=== PATIENT | male | born 1955 | race Caucasian/White ===

== ENCOUNTER 2017-11-23 05:33 | Inpatient (IN) | payer BC ==
[2017-11-02 10:59] VITALS: BMI 26.0
--- NOTE | 2017-11-02 11:32 | PAT Medication Instructions ---
Service Date Nov 02, 2017. Current Home Medication List Amlodipine/Benazepril (Lotrel 10MG/20MG), 1 CAP PO QAM Diclofenac (Voltaren), 75 MG PO BID Gabapentin (Neurontin), 400 MG PO QPM Hydrocodone/Acetaminophen 5MG/325MG ([place] 5MG/325MG), 0.5-1 TABLET PO Q6H Multivitamin (Multivitamin), 1 TAB PO QAM Pantoprazole (Protonix), 40 MG PO QAM Medication Instructions For Your Scheduled Surgery - Check with surgeon for instructions: Diclofenac (Voltaren), 75 MG PO BID - Hold the following medications the morning of surgery: Multivitamin (Multivitamin), 1 TAB PO QAM Amlodipine/Benazepril (Lotrel 10MG/20MG), 1 CAP PO QAM - Take the following medications the morning of surgery with a sip of water: Hydrocodone/Acetaminophen 5MG/325MG ([place] 5MG/325MG), 0.5-1 TABLET PO Q6H ( okay to take up to 4 hours prior to surgery if needed) Pantoprazole (Protonix), 40 MG PO QAM - Take the following medications as scheduled the night before surgery: Gabapentin (Neurontin), 400 MG PO QPM Hydrocodone/Acetaminophen 5MG/325MG ([place] 5MG/325MG), 0.5-1 TABLET PO Q6H (if needed) If you have any questions please call us at [phone] or [phone] or [phone]
[2017-11-02 12:30] LABS: BASO % 0.7 %; BASO ABS # 0.04 K/uL (0-0.2); EOS ABS # 0.18 K/uL (0-0.5); HEMATOCRIT 44.9 % (42-52); HEMOGLOBIN 15.5 g/dL (14.0-18.0); IG# 0.01 K/uL (0.00-0.02); LYMPH % 29.2 %; LYMPH ABS # 1.77 K/uL (1.2-3.4); MEAN CELL VOLUME 93.5 fL (80-100); MEAN CORPUSCULAR HEMOGLOBIN 32.3 pg (25-34); MEAN CORPUSCULAR HGB CONC 34.5 g/dl (32-36); MEAN PLATELET VOLUME 9.5 fL (7.4-10.4); MONO % 7.4 %; MONO ABS # 0.45 K/uL (0.11-0.59); NEUT % 59.5 %; NEUT ABS # 3.62 K/uL (1.4-6.5); PLATELET COUNT 282 K/uL (130-400); RED CELL DISTRIBUTION WIDTH CV 13.4 % (11.5-14.5); RED CELL DISTRIBUTION WIDTH SD 45.9 fL (36.4-46.3); WHITE BLOOD COUNT 6.07 K/uL (4.8-10.8)
--- NOTE | 2017-11-02 12:31 | DIAGNOSTIC IMAGING REPORT ---
CHEST 2 VIEWS ROUTINE CLINICAL HISTORY: PAT preoperative evaluation COMPARISON STUDY: 04/26/2015 FINDINGS: The bones soft tissues and hemidiaphragms are normal. The cardiomediastinal silhouette is normal. The lungs are clear. The pulmonary vasculature is normal. IMPRESSION: Negative chest. The above report was generated using voice recognition software. It may contain grammatical, syntax or spelling errors. Electronically signed by: Maurice Coyle M.D. 11/02/2017 12:30 PM Dictated Date/Time: 11/02/2017 12:30 PM
[2017-11-02 14:00] LABS: CREATININE 0.67 mg/dl (0.60-1.40); POTASSIUM 3.9 mmol/L (3.5-5.1)
[2017-11-23] VITALS (9 sets, daily range): BP systolic 109–145; BP diastolic 65–92; PULSE 64–95; TEMP 36.6–37; O2SAT 95–99; Ht 167.6 cm; Wt 73.8 kg
[~2017-11-23] VITALS: Ht 167.6 cm; Wt 73.8 kg
[~2017-11-23 05:33] MED LIST: AMLO10CA PO; DICL-201 PO; GABA-1220 PO; HYDR-5688 PO; MULT-506 PO; PANT40TA PO
[2017-11-23] MEDS ORDERED: CEFAZOLIN 1000MG IV PUSH 7.5 ML IV SCH (06:00)
[2017-11-23] MEDS ORDERED: ACETAMINOPHEN 500 MG TAB PO SCH (06:00)
[2017-11-23] MEDS ORDERED: LACTATED RINGER'S 1000ML 1,000 ML IV SCH (06:00)
[2017-11-23] MEDS ORDERED: GABAPENTIN 600 MG PO SCH (06:00)
[2017-11-23] MEDS ORDERED: CeleBREX 200 MG CAP PO SCH (06:00)
[2017-11-23] MEDS ORDERED: MIDAZOLAM HCL 1 MG/ML 2ML VIAL ONE (06:48)
[2017-11-23] MEDS ORDERED: FENTANYL CITRATE INJ 50 MCG/1 ML 2 ML VIAL ONE ×4 (06:48→08:51)
[2017-11-23] MEDS ORDERED: BUPIVACAINE/EPINEPHRINE 0.5% MPF 1:200,000 30 ML VIAL ONE (07:01)
[2017-11-23] MEDS ORDERED: BACITRACIN 50000 UNIT VIAL ONE (07:02)
--- NOTE | 2017-11-23 07:29 | History & Physical Bridge Note ---
H&P Re-Evaluation Bridge Note: I have examined the patient, reviewed the History & Physical and in the interval since the performance of the History & Physical I have noted the following changes of clinical significance: No changes noted
--- NOTE | 2017-11-23 07:29 | History and Physical ---
History & Physical Date Nov 23, 2017. Chief Complaint Back and leg pain History of Present Illness The patient is a 62 year old male with complaints of back and leg pain Additional History Hepatic Disease: No Endocrine Disorder: No Kidney Disease: No Hypertension: No Heart Disease: No Bleeding Tendencies: No Infectious Diseases: No Allergies Coded Allergies: No Known Allergies (Unverified , 11/02/17) Home Medications Scheduled Amlodipine/Benazepril (Lotrel 10MG/20MG), 1 CAP PO QAM Diclofenac (Voltaren), 75 MG PO BID Gabapentin (Neurontin), 400 MG PO QPM Hydrocodone/Acetaminophen 5MG/325MG ([place] 5MG/325MG), 0.5-1 TABLET PO Q6H Multivitamin (Multivitamin), 1 TAB PO QAM Pantoprazole (Protonix), 40 MG PO QAM Physical Examination Skin: warm/dry, no rash Eyes: normal inspection, EOMI, sclerae normal ENT: normal ENT inspection, pharynx normal Head: normocephalic, atraumatic Neck: supple, no adenopathy, trachea midline Respiratory/Chest: lungs clear, normal breath sounds, no respiratory distress Cardiovascular: regular rate, rhythm, no edema, no murmur Abdomen / GI: normal bowel sounds, non tender Back: normal inspection Extremities: normal inspection, normal range of motion Neurologic/Psych: no motor/sensory deficits, alert, normal reflexes, oriented x 3 Diagnosis Lumbar spinal stenosis Plan of Treatment Revision decompression and fusion L4-S1
[2017-11-23] MEDS ORDERED: HYDROmorphone INJ 2 MG/ML SYR/VIAL ONE ×2 (08:05→10:10)
[2017-11-23] MEDS ORDERED: EpHEDrine SULFATE 50MG/5ML SYR ONE ×2 (08:45→10:11)
[2017-11-23] MEDS ORDERED: ONDANSETRON INJ 2 MG/ML 2 ML VIAL ONE ×2 (08:45→10:11)
[2017-11-23] MEDS ORDERED: DEXAMETHASONE SOD INJ 4 MG/ML VIAL ONE (08:45)
[2017-11-23] MEDS ORDERED: LIDOCAINE HCL 2% 2 ML VIAL (20MG/ML) ONE (08:45)
[2017-11-23] MEDS ORDERED: PROPOFOL IV EMULSION 10 MG/ML 20 ML VIAL IV ONE (08:45)
[2017-11-23] MEDS ORDERED: PHENYLEPHRINE 100MCG/ML 5ML SYR IV PRN (09:45)
[2017-11-23] MEDS ORDERED: ONDANSETRON INJ 2 MG/ML 2 ML VIAL IV PRN ×2 (09:45→10:15)
[2017-11-23] MEDS ORDERED: HYDROmorphone INJ 2 MG/ML SYR/VIAL IV PRN (09:45)
[2017-11-23] MEDS ORDERED: ATROPINE SULFATE 0.1 MG/ML 5ML SYR IV PRN (09:45)
[2017-11-23] MEDS ORDERED: EpHEDrine SULFATE INJ 50 MG/ML AMP IV PRN (09:45)
[2017-11-23] MEDS ORDERED: FLOSEAL HEMOSTATIC MATRIX 10ML TOP ONE (09:57)
[2017-11-23] MEDS ORDERED: SODIUM CHLORIDE 0.9% 1000ML 1,000 ML IV SCH (10:01)
--- NOTE | 2017-11-23 10:01 | [facility] Operative Report ---
Operative Report Operative Date Nov 23, 2017. Pre-Operative Diagnosis Lumbar spinal stenosis Post-Operative Diagnosis Lumbar Spinal Stenosis Procedure(s) Performed 1. Revision decompression medial facetectomies foraminotomies L4-5 L5-S1. #2 posterior spinal fusion L4-5 L5-S1. #3 posterior segmental instrumentation L4-5 L5-S1. #4 interbody fusion L4-5 L5-S1. #5 placement peek cage 10 x 26 mm at L4-5 and L5-S1. #6 placement InFUSE collagen sponge, mass graft in the posterior lateral gutters and ostial amp in the interbody spaces. #7 placement of locally harvested morselized autograft in the posterior gutters. Surgeon Dr. Clements [employer] Director Surgeon(s) Bridget Grimes PA-C Estimated Blood Loss 200 cc Findings Severe spinal stenosis Specimens none per surgeon Anesthesia Type General Description of Procedure Patient was met with preoperatively case discussed all questions addressed. After informed consent obtained patient was taken to the operative suite underwent intubation and placed in the prone position on the Ajay table on top of the Hector frame. All bony prominences were well-padded eyes inspected to ensure no external pressure placed upon him. This point the lumbar spine was prepped and draped in normal sterile fashion. Sharp dissection with the assistance of Bovie cautery was performed down to and exposing the remaining lamina and transverse processes of L4-L5 and sacral ala bilaterally. From a caudal to cephalad fashion revision complete laminectomy of L4-5 and L4 was performed including medial facetectomies and foraminotomies. After this complete pedicle screws were placed in L4-L5 and S1 levels bilaterally with the assistance of fluoroscopy and appropriately sized mickey placed. Through a transforaminal approach on the left complete discectomy of L5-S1 was performed endplates could to subcortical bleeding bone and a 10 x 26 mm peek cage filled with ostium bone graft tapped in position. Then proceeded to L4-5 and again through a transforaminal approach complete discectomy performed endplates created to subcortical bleeding bone and a 10 x 26 mm peek cage filled with ostium bone graft tapped in position. Rods were then locked in final position bilaterally. The transverse processes of L4-L5 and the sugar ala burred to subcortical bleeding bone. Infuse collagen sponge mass graft and locally harvested morselized autograft was placed in the posterior lateral gutters. A 15 round SADA drain was inserted. Incision was closed with 1 Vicryl fascia 2-0 Vicryl subcutaneously and 4-0 Monocryl for fashion closure Steri-Strips sterile dressings placed. Patient will continue taking stable condition. Please note Rhonda Grimes was present throughout the entire procedure involved in patient positioning complex portions of the surgery and fashion closure. I attest to the content of the Intraoperative Record and any orders documented therein. Any exceptions are noted below.
--- NOTE | 2017-11-23 10:07 | DIAGNOSTIC IMAGING REPORT ---
LUMBAR SPINE 2 OR 3 VIEW CLINICAL HISTORY: 62 years-old Male presenting with L4-S1 DECOMPRESSION AND FUSION AND INTERBODY. TECHNIQUE: 2 fluoroscopic spot image(s) obtained as part of an intraoperative procedure. COMPARISON: MR from 05/01/2015. FINDINGS/IMPRESSION: There has been interval bilateral transpedicular screw and mickey fixation of L4-S1 with interbody spacers at L4-5 and L5-S1. Laminectomy defects at L4 and L5 noted. Slight retrolisthesis of L4 on L5. Please see surgical report for further details. Fluoroscopy dosage (mGy): 16.53. Fluoroscopy time: 20.5 seconds. Number of fluoroscopic spot images: 2. Electronically signed by: Tamir Elena M.D. 11/23/2017 10:05 AM Dictated Date/Time: 11/23/2017 10:04 AM
[2017-11-23] MEDS ORDERED: NEOSTIGMINE METHYLSULFATE 1 MG/ML 10ML VIAL ONE (10:11)
[2017-11-23] MEDS ORDERED: GLYCOPYRROLATE INJ 0.2 MG/ML VIAL ONE (10:11)
[2017-11-23] MEDS ORDERED: KETOROLAC TROMETHAMINE 30 MG/ML VIAL ONE (10:11)
[2017-11-23] MEDS ORDERED: PROMETHAZINE HCL INJ 12.5 MG in SODIUM CHLORIDE 0.9% 50ML 50 ML IV PRN (10:15)
[2017-11-23] MEDS ORDERED: ALUMINUM/MAGNESIUM SUSP 30 ML UDC PO PRN (10:15)
[2017-11-23] MEDS ORDERED: MAGNESIUM HYDROXIDE SUSP 30 ML UDC PO PRN (10:15)
[2017-11-23] MEDS ORDERED: METOCLOPRAMIDE HCL INJ 5 MG/ML 2 ML VIAL IV PRN (10:15)
[2017-11-23] MEDS ORDERED: LORAZEPAM INJ 1 MG in SYRINGE 0 ML IV PRN (10:15)
[2017-11-23] MEDS ORDERED: BISACODYL 10 MG SUPP PR PRN (10:15)
[2017-11-23] MEDS ORDERED: LORAZEPAM 0.5 MG TAB PO PRN (10:15)
[2017-11-23] MEDS ORDERED: NALOXONE HCL 0.4 MG/1 ML VIAL/CARP IV PRN ×2 (10:15)
[2017-11-23] MEDS ORDERED: DO NOT ADMINISTER PNEUMOCOCCAL VACCINE PRN (10:15)
[2017-11-23] MEDS ORDERED: DO NOT ADMINISTER FLU VACCINE PRN (10:15)
[2017-11-23] MEDS ORDERED: ACETAMINOPHEN IV 100 ML IV PRN (10:15)
[2017-11-23] MEDS ORDERED: ACETAMINOPHEN 500 MG TAB PO PRN (10:15)
[2017-11-23] MEDS ORDERED: hydrOXYzine HCL 25 MG TAB PO PRN (10:15)
[2017-11-23] MEDS ORDERED: SOD PHOSPHATE/SOD BIPHOSPHATE ENEMA 132 ML BTL PR PRN (10:15)
[2017-11-23] MEDS ORDERED: FAMOTIDINE 20 MG TAB PO PRN (10:15)
[2017-11-23] MEDS ORDERED: HYDROmorphone HCL 0.5MG/ML 50 ML CASSETTE ONE (10:22)
[2017-11-23] MEDS ORDERED: HYDROmorphone INJ 0.5 MG/0.5 ML SYR ONE (10:30)
--- NOTE | 2017-11-23 11:22 | Anesthesiology Progress Note ---
Anesthesia Post Op Note Date & Time Nov 23, 2017 at 11:22 Vital Signs Pain Intensity: 4 Vital Signs Past 12 Hours Date Time Temp Pulse Resp B/P (MAP) Pulse Ox O2 Delivery O2 Flow Rate FiO2 11/23/17 11:16 71 12 96 11/23/17 11:16 71 12 11/23/17 11:15 124/72 11/23/17 11:11 81 17 11/23/17 11:11 80 17 99 11/23/17 11:06 69 6 11/23/17 11:06 68 6 96 11/23/17 11:01 67 11 97 11/23/17 11:01 67 11 11/23/17 11:00 67 12 129/72 97 11/23/17 11:00 67 12 11/23/17 11:00 36.6 68 12 129/72 97 Nasal Cannula 4 11/23/17 10:55 74 21 136/79 98 11/23/17 10:55 73 21 11/23/17 10:50 76 13 130/79 99 11/23/17 10:50 75 13 11/23/17 10:45 69 12 126/73 99 11/23/17 10:45 69 12 11/23/17 10:40 67 16 11/23/17 10:40 67 16 130/73 99 11/23/17 10:35 64 12 11/23/17 10:35 63 12 118/76 99 11/23/17 10:30 68 10 11/23/17 10:30 68 10 138/83 100 11/23/17 10:25 68 12 11/23/17 10:25 69 12 144/81 100 11/23/17 10:20 67 20 11/23/17 10:20 36.4 60 16 143/82 98 Oxymask 10 11/23/17 10:20 67 20 143/82 100 11/23/17 06:49 36.8 64 18 145/92 97 Room Air Notes Mental Status: alert / awake / arousable, participated in evaluation Pt Amnestic to Procedure: Yes Nausea / Vomiting: adequately controlled Pain: adequately controlled Airway Patency, RR, SpO2: stable & adequate BP & HR: stable & adequate Hydration State: stable & adequate Anesthetic Complications: no major complications apparent
[2017-11-23] MEDS: HYDROmorphone HCL 0.5MG/ML 50 ML CASSETTE IV PRN ×3 (11:25→23:00)
[2017-11-23] MEDS: SODIUM CHLORIDE 0.9% 1000ML 1,000 ML IV SCH ×2 (12:38→19:23)
[2017-11-23] MEDS ORDERED: ESMOLOL HCL 10 MG/ML 10 ML VIAL ONE (12:46)
[2017-11-23] MEDS: CEFAZOLIN IV 2,000 MG in SYRINGE 0 ML IV SCH ×2 (15:56→23:27)
[2017-11-23] MEDS ORDERED: NURSING VERBAL MED ORDER ONE (16:15)
[2017-11-23] MEDS: DOCUSATE SODIUM/SENNA 50/8.6MG TAB PO SCH (20:51)
[2017-11-23] MEDS: GABAPENTIN 400 MG CAP PO SCH (20:51)
[2017-11-24] MEDS: SODIUM CHLORIDE 0.9% 1000ML 1,000 ML IV SCH (02:06)
[2017-11-24 03:55] VITALS: BP 111/66; PULSE 79; TEMP 36.7; O2SAT 96
[2017-11-24] MEDS ORDERED: DC PCA SCH (06:00)
[2017-11-24] MEDS ORDERED: HYDROmorphone INJ 0.5 MG/0.5 ML SYR IV PRN (06:01)
[2017-11-24 06:07] LABS: HEMATOCRIT 35.1 % (42-52); HEMOGLOBIN 11.5 g/dL (14.0-18.0); IG# 0.02 K/uL (0.00-0.02); LYMPH % 7.7 %; MEAN CELL VOLUME 94.4 fL (80-100); MEAN CORPUSCULAR HEMOGLOBIN 30.9 pg (25-34); MEAN CORPUSCULAR HGB CONC 32.8 g/dl (32-36); MEAN PLATELET VOLUME 9.5 fL (7.4-10.4); MONO % 6.3 %; MONO ABS # 0.74 K/uL (0.11-0.59); NEUT % 85.8 %; NEUT ABS # 10.08 K/uL (1.4-6.5); PLATELET COUNT 222 K/uL (130-400); RED CELL DISTRIBUTION WIDTH CV 13.8 % (11.5-14.5); WHITE BLOOD COUNT 11.74 K/uL (4.8-10.8)
[2017-11-24] MEDS ORDERED: NURSING VERBAL MED ORDER ONE (06:30)
[2017-11-24 06:43] LABS: CALCIUM 7.9 mg/dl (8.5-10.1); CREATININE 0.53 mg/dl (0.60-1.40); POTASSIUM 3.4 mmol/L (3.5-5.1)
[2017-11-24 07:06] VITALS: BP 115/70; PULSE 73; TEMP 36.9; O2SAT 99
[2017-11-24] MEDS: PANTOprazole SOD 40 MG TAB PO SCH (08:14)
[2017-11-24] MEDS: AMLODIPINE BESYLATE 5 MG TAB PO SCH (08:14)
[2017-11-24] MEDS: ENALAPRIL MALEATE 10 MG TAB PO SCH (08:14)
[2017-11-24] MEDS ORDERED: RXC5 PO (08:24)
--- NOTE | 2017-11-24 08:25 | Discharge Instructions ---
Discharge Instructions Date of Service Nov 24, 2017. Admission Reason for Admission: Spinal Stenosis Discharge Discharge Diagnosis / Problem: lumbar stenosis Discharge Goals Goal(s): Improve function Activity Recommendations Activity Limitations: per Instructions/Follow-up section . Instructions / Follow-Up Instructions / Follow-Up ACTIVITY RECOMMENDATIONS: SELF CARE INSTRUCTIONS AFTER THORACIC/LUMBAR FUSIONS 1. You may walk to your tolerance. It is good exercise for your legs and back. Expect some back and intermittent leg aches and pains. 2. You may perform "counter-top" level activities (make a sandwich, eugenio with a project, etc.). 3. No bending or lifting of more than 10 pounds or back twisting of any nature (roll like a log when turning in bed). 4. You may ride in a car for 20-30 minutes at a time. No driving until after your first visit with your doctor. 5. Frequent changes of position and restricting sitting to 30 minutes at a time will help limit the amount of back spasms and stiffness you may experience. 6. You may discontinue the use of ambulatory aids (cane, crutches, etc.) once your strength and confidence allow. 7. You may cutting tool sharpener the shower and let water strike your incision when you arrive home at least once daily. Do not take a tub bath, sit in a hot tub or go into a swimming pool until after your first recheck in the office. SPECIAL CARE INSTRUCTIONS: VERY IMPORTANT TO READ AND REVIEW A. Your surgical incision has been closed with a cosmetic suture under the skin that will dissolve in about 6 weeks. In 14 days, you can use a pair of clean scissors and cut the suture that is left outside of the skin at the ends of your incision. 1. The small skin tapes can be removed 7 days after surgery if they have not fallen off by that point. 2. You may keep the wound open to air as much as possible to promote healing after post-op day number 5 unless told otherwise by your doctor. 3. If you think the wound looks like it is becoming infected (redness or worsening drainage) and/or you are experiencing fever, chill or worsening back pain and muscle spasms, contact the office so that we may evaluate you as soon as possible. B. Complications are uncommon, but please contact us if you have any signs or symptoms of: 1. wound infection (fever higher than 102.5 degrees F, redness, separation of wound, drainage, or increasing pain from the incision) 2. blood clots in legs (pain, swelling, redness and warmth in legs) 3. urinary tract infection (fever higher than 102.5 degrees F, burning upon urination or increased frequency of urination) 4. nerve problems (inability to walk on your toes or heels, numbness, loss of bowel or bladder control) 5. any other symptoms that concern you C. Please call the office at if you have any concerns or questions about your operation or recovery. D. No smoking! Smoking drastically decreases the chance of a solid fusion. E. Do not take any anti-inflammatory medications (Indocin, Advil, Motrin, Aspirin, Naprosyn, etc.) as these may inhibit the chance of a solid fusion. Tylenol is okay to take for pain. MANAGING PAIN AFTER SPINAL SURGERY 1. Narcotic medication is intended for short-term use and will be provided for surgical pain. Surgical pain usually lasts for a period of 4-6 weeks. Narcotic medication includes Percocet, Vicodin, Darvocet, Tylenol #3 or Lortab. 2. Longer-term pain is more appropriately treated with non-narcotic medication such as Tylenol ES. 3. Muscle spasm is not appropriately treated with narcotics. Muscle relaxers such as Soma, Flexeril or Skelaxin can be used along with Tylenol ES. 4. Remember that we all live with some "aches and pains". This is not unusual or uncommon after an injury or as we get older. a. Back pain is expected and may include muscle spasms for 4 to 6 weeks after surgery. The pain should gradually improve. If the pain worsens for no apparent reason, please contact the office. b. Intermittent leg pain may also be experienced and should not be concerned about unless it worsens for no apparent reason. If so, please contact the office. 5. We will provide appropriate medication within the normal guidelines of their prescribed use. We will also be very cautious and aware of potential abuse and extended duration of patients' medication needs. a. Pain medications are for your comfort and to assist with sleep and rest so that the tissue can heal. They are not provided in order to return to normal activity and should not be used through the day. To do so or worsening pain at night can result from ongoing tissue damage and development of tolerance to the prescribed medicine. 6. Please allow 2-3 days to process refills. Prescriptions will not be mailed but must be picked up at the office. FOLLOW UP VISIT: Keep your scheduled follow-up appointment. Any questions, please call the office at . Current Hospital Diet Patient's current hospital diet: Regular Diet Discharge Diet Recommended Diet: Regular Diet Procedures Procedures Performed: 1. Revision decompression medial facetectomies foraminotomies L4-5 L5-S1. #2 posterior spinal fusion L4-5 L5-S1. #3 posterior segmental instrumentation L4-5 L5-S1. #4 interbody fusion L4-5 L5-S1. #5 placement peek cage 10 x 26 mm at L4-5 and L5-S1. #6 placement InFUSE collagen sponge, mass graft in the posterior lateral gutters and ostial amp in the interbody spaces. #7 placement of locally harvested morselized autograft in the posterior gutters. Pending Studies Studies pending at discharge: no Medical Emergencies . Who to Call and When: Medical Emergencies: If at any time you feel your situation is an emergency, please call 911 immediately. . Non-Emergent Contact Non-Emergency issues call your: Primary Care Provider . "Provider Documentation" section prepared by Mike Clements. .
--- NOTE | 2017-11-24 10:46 | Anesthesiology Progress Note ---
Anesthesia Post Op Note Date & Time Nov 24, 2017 at 10:45 Vital Signs Pain Intensity: 0.0 Vital Signs Past 12 Hours Date Time Temp Pulse Resp B/P (MAP) Pulse Ox O2 Delivery O2 Flow Rate FiO2 11/24/17 08:00 Room Air 11/24/17 07:06 36.9 73 16 115/70 (85) 99 Room Air 11/24/17 03:55 36.7 79 18 111/66 (81) 96 Room Air 11/23/17 23:25 Room Air 11/23/17 22:59 36.6 78 16 110/67 (81) 95 Room Air Notes Mental Status: alert / awake / arousable, participated in evaluation Pt Amnestic to Procedure: Yes Nausea / Vomiting: adequately controlled Pain: adequately controlled Airway Patency, RR, SpO2: stable & adequate BP & HR: stable & adequate Hydration State: stable & adequate Anesthetic Complications: no major complications apparent
[2017-11-24] MEDS: OXYCODONE HCL IR 5 MG TAB (IMMEDIATE RELEASE) PO PRN ×2 (11:13→13:17)
[2017-11-24 11:59] VITALS: BP 122/70; PULSE 73; TEMP 36.9; O2SAT 98
--- NOTE | 2017-11-24 13:02 | Progress Note ---
Progress Note Date of Service Nov 24, 2017. Progress Note Patient's back pain is controlled his leg symptoms improved. Vital signs are stable. On exam he is in a chair at the bedside appears comfortable. Assessment status post revision decompression fusion. Plan at this time will continue physical therapy anticipate discharge home tomorrow or the next day.
[2017-11-24 15:22] VITALS: BP 113/68; PULSE 70; TEMP 36.8; O2SAT 94
[2017-11-24] MEDS: KETOROLAC TROMETHAMINE 30 MG/ML VIAL IV PRN ×2 (16:40→23:20)
[2017-11-24] MEDS: GABAPENTIN 400 MG CAP PO SCH (20:38)
[2017-11-24] MEDS: DOCUSATE SODIUM/SENNA 50/8.6MG TAB PO SCH (20:38)
[2017-11-24 23:06] VITALS: BP 123/71; PULSE 67; TEMP 37; O2SAT 96
[2017-11-25] MEDS: POLYETHYLENE (MIRALAX) 17 GM PACK PO SCH ×4 (05:34→23:21)
[2017-11-25 07:45] VITALS: BP 135/83; PULSE 70; TEMP 37.1; O2SAT 96
--- NOTE | 2017-11-25 08:26 | Progress Note ---
Progress Note Date of Service Nov 25, 2017. Progress Note Patient complaining mostly of back pain today. Is quite debilitating. His leg symptoms however are markedly improved. Vital signs are stable. On exam he has good strength testing he is ambulatory. Plan at this time will maintain the SADA drain today remove this evening before he goes to bed. Plan for discharge home tomorrow.
[2017-11-25] MEDS: ENALAPRIL MALEATE 10 MG TAB PO SCH (08:27)
[2017-11-25] MEDS: OXYCODONE HCL IR 5 MG TAB (IMMEDIATE RELEASE) PO PRN ×2 (08:27→15:08)
[2017-11-25] MEDS: PANTOprazole SOD 40 MG TAB PO SCH (08:27)
[2017-11-25] MEDS: AMLODIPINE BESYLATE 5 MG TAB PO SCH (08:28)
[2017-11-25 15:27] VITALS: BP 120/72; PULSE 74; TEMP 37.3; O2SAT 96
[2017-11-25] MEDS: GABAPENTIN 400 MG CAP PO SCH (20:32)
[2017-11-25] MEDS: DOCUSATE SODIUM/SENNA 50/8.6MG TAB PO SCH (20:32)
[2017-11-25 23:08] VITALS: BP 109/65; PULSE 81; TEMP 37.2; O2SAT 94
[2017-11-26] MEDS: OXYCODONE HCL IR 5 MG TAB (IMMEDIATE RELEASE) PO PRN ×2 (03:20→08:21)
[2017-11-26] MEDS: POLYETHYLENE (MIRALAX) 17 GM PACK PO SCH (05:27)
[2017-11-26 06:03] VITALS: BP 137/88; PULSE 82; TEMP 37; O2SAT 94
[2017-11-26] MEDS: ENALAPRIL MALEATE 10 MG TAB PO SCH (07:24)
[2017-11-26] MEDS: AMLODIPINE BESYLATE 5 MG TAB PO SCH (07:24)
[2017-11-26] MEDS: PANTOprazole SOD 40 MG TAB PO SCH (07:24)
[2017-11-26 09:06] VITALS: BP 137/88; PULSE 82; TEMP 37; O2SAT 94
--- NOTE | 2017-11-26 12:09 | Discharge Summary ---
Orthopedic Discharge Summary Admission Date/Reason Nov 23, 2017 at 07:30 Spinal Stenosis. Discharge Date/Disposition Nov 26, 2017 Home Diagnosis Principal Diagnosis: Lumbar spinal stenosis Admission Physical Exam As per Admitting History & Physical. Hospital Course Patient underwent lumbar decompression and fusion tolerated as well as taken to the orthopedic floor postoperatively. Postop day #1 he was up and amatory progressed through postop day #2. Postop day #3 pain was well controlled subsequently discharged home. Discharge orders and instructions found in the chart for further review. Discharge Instructions Please refer to the electronic Patient Visit Report (Discharge Instructions) for additional information.
== END 2017-11-26 10:10 | disposition home or self-care (01) | DRG 455 ==
LOC: C.ACU 05:33 → C.3E 07:30 → ENRESERV 10:54
PROVIDERS: ADMIT Orthopaedic Surgery Orthopaedic Surgery of the Spine; ATTEND Orthopaedic Surgery Orthopaedic Surgery of the Spine
PROC: 0SG0071 Fusion of Lumbar Vertebral Joint with Autologous Tissue Substitute, Posterior Approach, Posterior Column, Open Approach (ICD-10-PCS; principal; 2017-11-23 07:45)
PROC: 0SG30AJ Fusion of Lumbosacral Joint with Interbody Fusion Device, Posterior Approach, Anterior Column, Open Approach (ICD-10-PCS; principal; 2017-11-23 07:45)
PROC: 0SG00AJ Fusion of Lumbar Vertebral Joint with Interbody Fusion Device, Posterior Approach, Anterior Column, Open Approach (ICD-10-PCS; principal; 2017-11-23 07:45)
PROC: 0SG3071 Fusion of Lumbosacral Joint with Autologous Tissue Substitute, Posterior Approach, Posterior Column, Open Approach (ICD-10-PCS; principal; 2017-11-23 07:45)
PROC: 0ST40ZZ Resection of Lumbosacral Disc, Open Approach (ICD-10-PCS; principal; 2017-11-23 07:45)
DX: M48.061 Spinal stenosis, lumbar region without neurogenic claudication (principal); Z79.899 Other long term (current) drug therapy; Z98.1 Arthrodesis status